=== PATIENT | female | born 1960 | race American Indian/Alaskan Native ===

== ENCOUNTER 2021-10-09 23:55 | Emergency (ER) | payer SELFPAY ==
--- NOTE | 2021-10-10 02:19 | XRay Report ---
RIGHT FOOT 3 VIEWS INDICATION / CLINICAL INFORMATION: right heel pain COMPARISON: None available. FINDINGS: BONES and JOINT(S): No acute fracture or subluxation. No significant arthritis. SOFT TISSUES: No significant abnormality. ADDITIONAL FINDINGS: None. IMPRESSION: 1. No acute findings. Signer Name: Buck Ellis MD Signed: 10/10/2021 2:14 AM Workstation Name: [id number]
--- NOTE | 2021-10-10 06:31 | Emergency Department Report ---
ED Lower Extremity HPI - General Chief Complaint: Extremity Injury, Lower Stated Complaint: LT FOOT INJURY Source: patient Mode of arrival: Stretcher Limitations: No Limitations - History of Present Illness Initial Comments: Patient is a 61-year-old -[place] female with a history of hypertension who presents to the ED with complaint of acute onset right ankle and right foot pain after being hit on the right ankle and foot by a forklift accidentally at work about 6 hours ago. Patient states that the pain is constant and persistent and that she is unable to bear weight on the right ankle and foot because of pain. Patient denies head or neck injuries, back pain, hip pain, chest pain or shortness of breath, knee pain, loss of consciousness, change in vision, nausea and vomiting, numbness and tingling or weakness of lower extremities bilaterally. MD Complaint: ankle injury (Right ankle pain), foot injury (Right foot pain) -: Sudden, hour(s) (6) Injury: Ankle: Right (Pain), Foot: Right (Pain) Type of Injury: blunt (Hit by a forklift at work on the posterior right ankle and foot) Place: work Severity: severe Severity scale (0 -10): 7 Improves With: nothing Worsens With: weight bearing, movement, palpation Context: fall, direct blow (Hit by a forklift at work) Associated Symptoms: snap/pop sensation, able to partially bear weight. denies: swelling, numbness, tingling, unable to bear weight, ambulatory - Related Data Previous Rx's Medication Instructions Recorded Last Taken Type Ibuprofen [Motrin] 600 mg PO Q8H PRN #30 tablet 10/10/21 Unknown Rx traMADoL [Ultram] 50 mg PO Q6HR PRN #12 tablet 10/10/21 Unknown Rx Allergies Allergy/AdvReac Type Severity Reaction Status Date / Time No Known Allergies Allergy Unverified 10/10/21 01:03 ED Review of Systems ROS: Stated complaint: LT FOOT INJURY Other details as noted in HPI Constitutional: denies: chills, fever Eyes: denies: eye pain, eye discharge, vision change ENT: denies: ear pain, throat pain Respiratory: denies: cough, shortness of breath, wheezing Cardiovascular: denies: chest pain, palpitations Endocrine: no symptoms reported Gastrointestinal: denies: abdominal pain, nausea, diarrhea Genitourinary: denies: urgency, dysuria, discharge Musculoskeletal: arthralgia (Left foot and ankle pain). denies: back pain, joint swelling Skin: denies: rash, lesions Neurological: denies: headache, weakness, paresthesias Psychiatric: denies: anxiety, depression Hematological/Lymphatic: denies: easy bleeding, easy bruising ED Past Medical Hx - Past Medical History Previous Medical History?: Yes Hx Hypertension: Yes - Surgical History Past Surgical History?: No - Social History Smoking Status: Never Smoker Substance Use Type: None - Medications Home Medications: Home Medications Medication Instructions Recorded Confirmed Last Taken Type Ibuprofen [Motrin] 600 mg PO Q8H PRN #30 tablet 10/10/21 Unknown Rx traMADoL [Ultram] 50 mg PO Q6HR PRN #12 tablet 10/10/21 Unknown Rx ED Physical Exam - General Limitations: No Limitations General appearance: alert, in no apparent distress - Head Head exam: Present: atraumatic, normocephalic, normal inspection - Eye Eye exam: Present: normal appearance, PERRL, EOMI Pupils: Present: normal accommodation - ENT ENT exam: Present: normal exam, normal orophraynx, mucous membranes moist, TM's normal bilaterally, normal external ear exam - Neck Neck exam: Present: normal inspection, full ROM. Absent: tenderness - Respiratory Respiratory exam: Present: normal lung sounds bilaterally. Absent: respiratory distress, wheezes, rales, rhonchi, chest wall tenderness, accessory muscle use, decreased breath sounds, prolonged expiratory - Cardiovascular Cardiovascular Exam: Present: normal rhythm, tachycardia, normal heart sounds. Absent: systolic murmur, diastolic murmur, rubs, gallop - GI/Abdominal GI/Abdominal exam: Present: soft, normal bowel sounds. Absent: tenderness, guarding, rebound, hyperactive bowel sounds, hypoactive bowel sounds, organomegaly, mass - Extremities Exam Extremities exam: Present: normal inspection, tenderness (Palpable left ankle and left foot tenderness with limited range of motion due to pain), normal capillary refill. Absent: full ROM (Limited range of motion of left foot and ankle due to pain), pedal edema, joint swelling, calf tenderness - Back Exam Back exam: Present: normal inspection, full ROM. Absent: tenderness, CVA tenderness (R), CVA tenderness (L), muscle spasm, paraspinal tenderness, vertebral tenderness - Neurological Exam Neurological exam: Present: alert, oriented X3, CN II-XII intact, normal gait, reflexes normal - Psychiatric Psychiatric exam: Present: normal affect, normal mood - Skin Skin exam: Present: warm, dry, intact, normal color. Absent: rash ED Course Vital Signs 10/10/21 10/10/21 00:57 06:34 Temperature 98 F Pulse Rate 100 H 82 Respiratory 18 Rate Blood Pressure 186/99 O2 Sat by Pulse 100 100 Oximetry ED Lower Extremity MDM - Radiology Data Radiology results: report reviewed, image reviewed [facility] [address] [place] [address] XRay Report Signed Patient: TREE GREER MR#: [id number] : 1960 Acct:[id number] Age/Sex: 61 / F ADM Date: 10/09/21 Loc: ED Attending Dr: Ordering Physician: NILTON GILMORE MD Date of Service: 10/10/21 Procedure(s): XR foot 3+V RT Accession Number(s): [id number] cc: ED MD MANDO Fluoro Time In Minutes: RIGHT FOOT 3 VIEWS INDICATION / CLINICAL INFORMATION: right heel pain COMPARISON: None available. FINDINGS: BONES and JOINT(S): No acute fracture or subluxation. No significant arthritis. SOFT TISSUES: No significant abnormality. ADDITIONAL FINDINGS: None. IMPRESSION: 1. No acute findings. Signer Name: Buck Ellis MD Signed: 10/10/2021 2:14 AM Workstation Name: [id number] Transcribed By: [place] Dictated By: Buck Ellis MD Electronically Authenticated By: Buck Ellis MD Signed Date/Time: 10/10/21213 DD/ 3 TD/TT: Print [facility] [address] [place] [address] XRay Report Signed Patient: TREE GREER MR#: [id number] : 1960 Acct:[id number] Age/Sex: 61 / F ADM Date: 10/09/21 Loc: ED Attending Dr: Ordering Physician: URMILA LEE Date of Service: 10/10/21 Procedure(s): XR ankle 3+V RT Accession Number(s): [id number] cc: URMILA LEE Fluoro Time In Minutes: RIGHT ANKLE 3 VIEWS INDICATION / CLINICAL INFORMATION: Right ankle pain. COMPARISON: None available. FINDINGS: BONES and JOINT(S): No acute fracture or subluxation. No significant arthritis. SOFT TISSUES: There is mild generalized edema. No other significant abnormality. ADDITIONAL FINDINGS: None. IMPRESSION: Mild right ankle edema without other acute findings. Signer Name: Buck Ellis MD Signed: 10/10/2021 6:46 AM Workstation Name: [id number] Transcribed By: MN Dictated By: Buck Ellis MD Electronically Authenticated By: Buck Ellis MD Signed Date/Time: 10/10/21645 DD/ 4 TD/TT: - Medical Decision Making This is a 61-year-old -[place] female with a history of hypertension who presents to the ED with complaint of acute onset right ankle and right foot pain after being hit on the right ankle and foot by a forklift accidentally at work about 6 hours ago. Patient states that the pain is constant and persistent and that she is unable to bear weight on the right ankle and foot because of pain. In the ED, patient is alert and oriented x3 and is not in any distress. Patient was treated for pain in the ED. Right ankle x-ray showed no acute fractures or subluxations. Right foot x-ray also showed no acute fractures and subluxations. Right foot and ankle was splinted with Ten wrap and postop shoe respectively. Patient was thereafter discharged home on pain medications and advised to follow-up with her primary care physician in 5 to 7 days for reevaluation. Patient was advised return to the ED immediately if symptoms get worse. - Differential Diagnosis Foot sprain; foot fracture; ankle fracture; ankle sprain; muscle strain Critical care attestation.: If time is entered above; I have spent that time in minutes in the direct care of this critically ill patient, excluding procedure time. ED Disposition Clinical Impression: Severe sprain of right ankle Qualifiers: Encounter type: initial encounter Qualified Code(s): S93.401A - Sprain of unspecified ligament of right ankle, initial encounter Sprain of right foot Qualifiers: Encounter type: initial encounter Qualified Code(s): S93.601A - Unspecified sprain of right foot, initial encounter Disposition: HOME / SELF CARE / HOMELESS Is pt being admited?: No Does the pt Need Aspirin: No Condition: Stable Instructions: Ankle Sprain, [id number], Foot Sprain Additional Instructions: The right foot and ankle x-rays showed no acute fractures or subluxations. Your injuries are likely musculoskeletal. Therefore take medications as needed for pain, drink plenty of fluids, follow-up with your primary care physician in 7 to 10 days for reevaluation. Return to the ED immediately if symptoms get worse. Prescriptions: Ibuprofen [Motrin] 600 mg PO Q8H PRN #30 tablet PRN Reason: Pain traMADoL [Ultram] 50 mg PO Q6HR PRN #12 tablet PRN Reason: Pain Referrals: [facility] [Provider Group] - 7-10 days Forms: Work/School Release Form(ED) Time of Disposition: 06:32 Print Language: ARMENIAN
--- NOTE | 2021-10-10 06:50 | XRay Report ---
RIGHT ANKLE 3 VIEWS INDICATION / CLINICAL INFORMATION: Right ankle pain. COMPARISON: None available. FINDINGS: BONES and JOINT(S): No acute fracture or subluxation. No significant arthritis. SOFT TISSUES: There is mild generalized edema. No other significant abnormality. ADDITIONAL FINDINGS: None. IMPRESSION: Mild right ankle edema without other acute findings. Signer Name: Buck Ellis MD Signed: 10/10/2021 6:46 AM Workstation Name: [id number]
[2021-10-10 07:34] VITALS: BP 103/65
== END 2021-10-10 07:34 | disposition home or self-care (01) ==
LOC: ED 23:55
DX: S93.491A Sprain of other ligament of right ankle, initial encounter (principal); S93.691A Other sprain of right foot, initial encounter; W22.8XXA Striking against or struck by other objects, initial encounter; Y93.89 Activity, other specified; Y92.89 Other specified places as the place of occurrence of the external cause; Y99.8 Other external cause status
CPT/HCPCS: 99283; 99284